=== PATIENT | female | born 1985 | race Hispanic/Latino ===

== ENCOUNTER 2023-08-26 16:37 | Emergency (ER) | payer OTHER ==
[~2023-08-26] VITALS: Ht 157.5 cm; Wt 114.8 kg
[2023-08-26 17:23] VITALS: BP 121/65; PULSE 74; RESP 12; O2SAT 98
[2023-08-26] MEDS ORDERED: AMOX875T2 PO (17:33)
== END 2023-08-26 17:45 | disposition home or self-care (01) ==
LOC: EDH 16:37
DX: H92.02 Otalgia, left ear (principal); R09.A9 Foreign body sensation, other site; E11.9 Type 2 diabetes mellitus without complications; I10 Essential (primary) hypertension; Z88.8 Allergy status to other drugs, medicaments and biological substances; Z79.899 Other long term (current) drug therapy